=== PATIENT | male | born 1940 | race Caucasian/White ===

== ENCOUNTER 2021-04-02 11:37 | Outpatient (CLI) | payer MEDICARE, SELFPAY ==
--- NOTE | ~2021-04-02 | XR_ITS ---
XR_CERV2-3V_CR DATE: 04/02/2021 12:25 INDICATION: Neck pain, right shoulder pain, radiculopathy. TECHNIQUE: AP, open-mouth, lateral views COMPARISON: None FINDINGS: There is diffuse osteopenia. There is straightening of the cervical spine. C1 and C2 are normally aligned and the odontoid process is intact. No fracture or dislocation or locked facet is evident. No prevertebral soft tissue swelling. Mild degenerative disc disease at C5-6 and moderate degenerative disc disease at C6-7 There is degenerative change at the apophyseal and uncovertebral joints. IMPRESSION: Diffuse osteopenia Straightening No fracture or dislocation or locked facet Degenerative changes Reviewed, dictated and finalized at [facility]. Reviewed, dictated and finalized at [facility].
--- NOTE | ~2021-04-02 | XR_ITS ---
XR shoulder RT min 2V DATE: 04/02/2021 12:25 INDICATION: Right shoulder pain and burning TECHNIQUE: 5 views COMPARISON: None FINDINGS: There is osteopenia. There is mild dextro scoliosis of the thoracic spine and degenerative spurring. There is inferior spurring of the right clavicle at the acromioclavicular joint. No fracture, dislocation, periosteal reaction or bone destruction or abnormal soft tissue calcificati on of the right shoulder IMPRESSION: Mild degenerative change at right acromioclavicular joint Osteopenia Reviewed, dictated and finalized at [facility].
== END 2021-04-02 11:38 | disposition home or self-care (01) ==
LOC: CHSIMG 11:45
PROVIDERS: PCP Family Medicine; Visit Provider Family Medicine
DX: M25.511 Pain in right shoulder (principal); M47.812 Spondylosis without myelopathy or radiculopathy, cervical region
CPT/HCPCS: 72040; 73030

== ENCOUNTER 2021-11-03 10:58 | Emergency (ER) | payer MEDICARE, SELFPAY ==
--- NOTE | ~2021-11-03 | XR_ITS ---
EXAMINATION: XR chest 1V portable INDICATION: Cough and shortness of breath TECHNIQUE: Portable AP chest at 1132 hours COMPARISON: None available FINDINGS: There is a mild diffuse interstitial pattern. No pleural effusion or pneumothorax is identi fied. The heart size is upper limits of normal for technique. There is mild osteoarthritis of the [place] ulders. IMPRESSION: 1. Possible mild pulmonary edema. Reviewed, dictated and finalized at [facility].
[2021-11-03 11:05] VITALS: BP 170/80; PULSE 84; RESP 16; TEMP 36.6; O2SAT 97
[2021-11-03] MEDS: diphenhydrAMINE HCl CAP 25 MG CAPSULE PO (11:28)
--- NOTE | 2021-11-03 11:35 | ED.GENADULT ---
HPI - General Adult General Chief complaint: Upper Respiratory Infection Stated complaint: cough sore throat Time Seen by Provider: 11/03/21 10:59 Source: patient and family Mode of arrival: ambulatory Limitations: no limitations History of Present Illness HPI narrative: Leonard is a 81M with a PMH, OA, and cataracts that presented to clinic with a week of cough, runny nose, congestion and he had one episode of blood on the tissue when he blew his nose. He has been around family members with bronchitis. No fevers, chills, N/V, lightheadedness or CP. Related Data Home Medications Medication Instructions Recorded Confirmed carvedilol 6.25 mg PO DAILY 11/03/21 11/03/21 tamsulosin 0.4 mg PO DAILY 11/03/21 11/03/21 Allergies Allergy/AdvReac Type Severity Reaction Status Date / Time No Known Allergies Allergy Verified 11/03/21 11:14 Review of Systems Constitutional: Constitutional: Reports no additional constitutional complaints Eyes: Eyes: Reports no additional eye complaints ENT: Reports as per HPI Cardiovascular: Cardiovascular: Reports no additional cardiovascular complaints Respiratory: Respiratory: Reports as per HPI Gastrointestinal: Gastrointestinal: Reports no additional gastrointestinal complaints Genitourinary: Genitourinary: Reports no additional male genitourinary complaints Musculoskeletal: Musculoskeletal: Reports no additional musculoskeletal complaints Integumentary/Breasts: Skin/Breast: Reports system reviewed and no additional complaints, except as docu Neurologic: Reports system reviewed and no additional complaints, except as documented Psychiatric: Psychiatric: Reports no additional psychiatric complaints Endocrine: Endocrine: Reports no additional endocrine complaints Hematologic/Lymphatic: Hematologic/Lymphatic: Reports no additional hematologic/lymphatic complaints Allergic/Immunologic: Allergic/Immunologic: Reports no additional allergic/immunologic complaints Exam Const: General: no acute distress and alert Orientation/consciousness: patient oriented x3 Limitations: No altered mental status HENMT: Head: normal to inspection Other: atrauamtic. Cerumen impaction on the left. Rhinorrhea present. Posterior oropharynx cobblestoning Eyes: Conjunctivae: conjunctivae normal Pupils: Equal, round and reactive pupils present Neck: Neck: normal visual inspection Chest: Chest palpation & inspection: normal inspection of the chest Resp: Effort & Inspection: normal respiratory effort Auscultation: clear to auscultation bilaterally Cardio: Rate: regular rate Rhythm: regular rhythm GI: Inspection: non-distended GI Palp: Yes Soft to palpation, No Tenderness to palpation present (GI) and No Guarding due to palpation present (GI) Skin: General skin exam: normal color Rashes: no rashes Neuro: General: patient oriented x3 and moves all extremities Extrem: General: normal to inspection Psych: Appearance: grossly normal Mental Status: mental status grossly normal Course Course Emergency Course: Ordered CXR and labs. EXAMINATION: XR chest 1V portable INDICATION: Cough and shortness of breath TECHNIQUE: Portable AP chest at 1132 hours COMPARISON: None available FINDINGS: There is a mild diffuse interstitial pattern. No pleural effusion or pneumothorax is identified. The heart size is upper limits of normal for technique. There is mild osteoarthritis of the shoulders. IMPRESSION: 1. Possible mild pulmonary edema. We discussed how his symptoms could be from allergies or a URI. We also discussed his CXR and how he should follow up with his PCP next week and he expressed understanding. Vital Signs Vital signs: Vital Signs Temperature 97.8 F 11/03/21 11:05 Pulse Rate 84 11/03/21 11:05 Respiratory Rate 16 11/03/21 11:05 Blood Pressure 170/80 H 11/03/21 11:05 Pulse Oximetry 97 11/03/21 11:05 Temperature 97.8 F 11/03/21 11:05 Pulse Rate 84 11/03/21 11:
[2021-11-03 11:37] LABS: Basophils Absolute Auto 0.04 K/mm3 (0.00-0.10); Basophils Percent Auto 0.4 % (0.0-1.0); Eosinophils Absolute Auto 0.12 K/mm3 (0.02-0.50); Eosinophils Percent Auto 1.2 % (1.0-6.0); Hemoglobin 14.7 g/dL (12.4-15.3); Immature Granulocyte Absolute 0.04 K/mm3 (0.00-0.00); Immature Granulocyte Percent A 0.4 % (0.0-0.0); Lymphocytes Absolute Auto 1.71 K/mm3 (1.10-4.50); Lymphocytes Percent Auto 16.8 % (18.0-42.0); Mean Corpuscular HGB Conc 34.2 g/dL (32.0-36.0); Mean Corpuscular Volume 93.7 fL (78.0-102.0); Mean Platelet Volume 9.2 fl (8.7-11.0); Monocytes Absolute Auto 1.11 K/mm3 (0.10-0.90); Monocytes Percent Auto 10.9 % (2.0-11.0); Neutrophils Absolute Auto 7.1 K/mm3 (1.7-7.2); Neutrophils Percent Auto 70.3 % (50.0-70.0); Platelet Count Result 336 K/mm3 (150-420); Red Blood Count 4.59 M/mm3 (4.70-6.10); Red Cell Distribution Width 12.9 % (11.6-14.4); White Blood Count 10.2 K/mm3 (4.8-10.8)
[2021-11-03 12:02] LABS: Alanine Aminotransferase 56 U/L (16-63); Albumin Level 3.1 g/dL (3.4-5.0); Alkaline Phosphatase 102 U/L (46-116); Anion Gap 9 mmol/L (8-16); Aspartate Amino Transferase 42 U/L (15-37); Bilirubin,Total 0.7 mg/dL (0.00-1.00); Blood Urea Nitrogen 11 mg/dL (7-18); Calcium 8.5 mg/dL (8.5-10.1); Carbon Dioxide 25 mmol/L (21-32); Chloride 103 mmol/L (98-108); Estimated CRCL calculation 61 ml/min; Estimated Glomerular Filt Rate > 60; Glucose 114 mg/dL (70-99); Osmolality Calculated 284 mOsm/kg (285-295); Sodium 137 mmol/L (136-145); Total Protein 7.8 g/dL (6.4-8.2)
[2021-11-03 12:03] LABS: Acetaminophen < 2 ug/mL (10-30)
[2021-11-03 12:05] LABS: Influenza Control Valid (Valid); SARS-CoV-2 Ag Negative (Negative)
[2021-11-03 12:20] VITALS: BP 150/77; PULSE 75; RESP 16; TEMP 36.5; O2SAT 96
== END 2021-11-03 12:23 | disposition home or self-care (01) ==
PROVIDERS: Emergency Provider Family Medicine; PCP Family Medicine
DX: J06.9 Acute upper respiratory infection, unspecified (principal); J30.2 Other seasonal allergic rhinitis; Z20.822 Contact with and (suspected) exposure to COVID-19; Z79.899 Other long term (current) drug therapy
CPT/HCPCS: 71045; 80053; 80307; 85025; 87426; 87804; 99283; A9270; C9803

== ENCOUNTER 2022-10-20 12:50 | Outpatient (CLI) | payer MEDICARE, SELFPAY ==
[2022-10-20 13:07] LABS: Basophils Absolute Auto 0.04 K/mm3 (0.00-0.10); Basophils Percent Auto 0.7 % (0.0-1.0); Eosinophils Absolute Auto 0.14 K/mm3 (0.02-0.50); Eosinophils Percent Auto 2.3 % (1.0-6.0); Hematocrit 43.6 % (37.0-46.0); Hemoglobin 14.6 g/dL (12.4-15.3); Immature Granulocyte Absolute 0.02 K/mm3 (0.00-0.00); Immature Granulocyte Percent A 0.3 % (0.0-0.0); Lymphocytes Absolute Auto 2.12 K/mm3 (1.10-4.50); Lymphocytes Percent Auto 34.9 % (18.0-42.0); Mean Corpuscular HGB Conc 33.5 g/dL (32.0-36.0); Mean Corpuscular Hemoglobin 31.3 pg (27.0-31.0); Mean Corpuscular Volume 93.6 fL (78.0-102.0); Mean Platelet Volume 9.1 fl (8.7-11.0); Monocytes Absolute Auto 0.54 K/mm3 (0.10-0.90); Monocytes Percent Auto 8.9 % (2.0-11.0); Neutrophils Absolute Auto 3.2 K/mm3 (1.7-7.2); Neutrophils Percent Auto 52.9 % (50.0-70.0); Platelet Count Result 282 K/mm3 (150-420); Red Blood Count 4.66 M/mm3 (4.70-6.10); White Blood Count 6.1 K/mm3 (4.8-10.8)
[2022-10-20 13:11] LABS: Appearance Urine Clear (Clear); Bilirubin Urine Negative (Negative); Blood Urine Negative (Negative); Color Urine Yellow (Yellow); Glucose Urine UA Negative (Negative); Ketones Urine Negative (Negative); Leukocyte Esterase Ur Negative (Negative); Nitrate Urine Negative (Negative); Protein Urine Negative (Negative); Specific Grav Ur >= 1.030 (1.010-1.020); Urobilinogen Urine 0.2 mg/dL (0.2-1.0)
--- NOTE | 2022-10-20 13:14 | ECG_ITS ---
Measurements Intervals [place] Rate: 60 P: NV: 0 QRS: -17 QRSD: 82 T: 18 QT: 431 QTc: 434 Interpretive Statements SUPRAVENTRICULAR RHYTHM INFERIOR MYOCARDIAL INFARCTION , PROBABLY OLD [40+ ms Q WAVE AND/OR ST/T ABNORMALITY IN II/aVF] ABNORMAL EKG NO PREVIOUS ECG AVAILABLE FOR COMPARISON Electronically Signed On 10-21-2022 14:26:48 CDT by Isaac Schwarz M.D.
[2022-10-20 13:15] LABS: Add Urine Microscopic? NO
== END 2022-10-20 12:51 | disposition home or self-care (01) ==
LOC: CHSLAB 12:55
PROVIDERS: PCP Family Medicine; Visit Provider Family Medicine
DX: Z01.818 Encounter for other preprocedural examination (principal); R94.31 Abnormal electrocardiogram [ECG] [EKG]
CPT/HCPCS: 36415; 81003; 85025; 87086; 93005